=== PATIENT | male | born 1995 | race Asian ===

== ENCOUNTER 2017-08-03 10:54 | Emergency (ER) | payer MEDICARE, MEDICAID ==
[~2017-08-03] VITALS: Ht 182.9 cm; Wt 68.0 kg
[2017-08-03 11:05] VITALS: BP 131/72
== END 2017-08-03 15:45 | disposition left against medical advice (07) ==
LOC: ER 11:38
DX: R21 Rash and other nonspecific skin eruption (principal); Z53.21 Procedure and treatment not carried out due to patient leaving prior to being seen by health care provider